=== PATIENT | female | born 1975 | race Caucasian/White ===

== ENCOUNTER 2018-02-21 09:20 | Emergency (ER) | payer BC, OTHER ==
[~2018-02-21] VITALS: Ht 162.6 cm; Wt 72.6 kg
[~2018-02-21 09:20] MED LIST: CYCL10TA9 PO; DEXL60CA5 PO; FOLI1TAB24 PO; HYDR-3454 PO; HYDR118S10 PO; HYDR200T46 PO; LEVO1TAB PO; LEVO750T6 PO; METH2.5T PO; METO10TA3 PO; METR500T PO; OXYC1TAB87 PO; PRD20T PO; REMI100D IV; REMICADE; REMICADE IV; SERT50TA9 PO
[2018-02-21] MEDS ORDERED: NS IV 1000 ML 1,000 ML IV ONE (09:59)
[2018-02-21] MEDS ORDERED: KETOROLAC 30 MG/ML VIAL IVP ONE (10:00)
[2018-02-21] MEDS ORDERED: ONDANSETRON 4 MG/2 ML (SDV) Z0FRAN IVP ONE (10:00)
--- NOTE | 2018-02-21 10:45 | Diagnostic Imaging Report ---
INDICATION: Influenza. EXAMINATION: PA and lateral views of the chest are obtained. COMPARISON: No previous study is available for comparison at this time. FINDINGS: Heart size and pulmonary vasculature are within normal limits, and the lungs are clear, bilaterally. IMPRESSION: Unremarkable chest. Dictated by: Dictated on workstation # [id number]
[2018-02-21 10:52] LABS: BASOPHILS % (AUTO) 1 % (0-10); EOSINOPHILS % (AUTO) 0 % (0-10); HEMATOCRIT 40 % (35-52); HEMOGLOBIN 13.7 G/DL (11.5-16.0); LYMPHOCYTES # (AUTO) 0.5 X 10^3 (1.0-4.0); LYMPHOCYTES % (AUTO) 23 % (12-44); MEAN CORPUSCULAR HEMOGLOBIN 31 PG (25-34); MEAN CORPUSCULAR HGB CONC 35 G/DL (32-36); MEAN CORPUSCULAR VOLUME 91 FL (80-99); MEAN PLATELET VOLUME 11.3 FL (7.4-10.4); MONOCYTES # (AUTO) 0.3 X 10^3 (0.0-1.0); MONOCYTES % (AUTO) 13 % (0-12); NEUTROPHILS # (AUTO) 1.3 X 10^3 (1.8-7.8); NEUTROPHILS % (AUTO) 64 % (42-75); PLATELET COUNT 118 10^3/uL (130-400); RED BLOOD COUNT 4.36 10^6/uL (4.35-5.85); RED CELL DISTRIBUTION WIDTH 13.2 % (10.0-14.5)
[2018-02-21 11:11] LABS: ALANINE AMINOTRANSFERASE 35 U/L (0-55); ALKALINE PHOSPHATASE 42 U/L (40-136); BILIRUBIN,TOTAL 0.2 MG/DL (0.1-1.0); BUN/CREATININE RATIO 8; CALCIUM 8.5 MG/DL (8.5-10.1); CARBON DIOXIDE 22 MMOL/L (21-32); CHLORIDE 104 MMOL/L (98-107); CREATININE SERUM 0.72 MG/DL (0.60-1.30); GFR ESTIMATED > 60; GLUCOSE 95 MG/DL (70-105); POTASSIUM 3.6 MMOL/L (3.6-5.0); SODIUM 135 MMOL/L (135-145); TOTAL PROTEIN 7.1 GM/DL (6.4-8.2)
[2018-02-21 11:24] LABS: BILIRUBIN,URINE NEGATIVE (NEGATIVE); CLARITY,URINE CLEAR; COLOR,URINE YELLOW; GLUCOSE, URINE (UA) NEGATIVE (NEGATIVE); KETONES,URINE 4+ (NEGATIVE); LEUKOCYTE ESTERASE ,URINE NEGATIVE (NEGATIVE); NITRITE,URINE NEGATIVE (NEGATIVE); PH,URINE 6 (5-9); PROTEIN,URINE 1+ (NEGATIVE); UROBILINOGEN,URINE NORMAL (NORMAL)
[2018-02-21 11:40] LABS: BACTERIA,URINE FEW /HPF; HYALINE CASTS, URINE RARE /LPF; RBC,URINE 0-2 /HPF
[2018-02-21 11:41] LABS: YEAST,URINE FEW /HPF
--- NOTE | 2018-02-21 12:31 | ED General ---
General Chief Complaint: Cough/Cold/Flu Symptoms Stated Complaint: INFLUENZA B Nursing Triage Note: TO ROOM REPORTS HAS FLU SYMPTOMS SINCE SUNDAY WAS SEE AT DR'S OFFICE TESTED POS FOR FLU B. WAS PUT ON TAMIFLU AND PHERGRAN CON'T TO NOT BE ANY BETTER. CONCERN THAT SHE IS ON REMACADE. CALLED 'S OFFICE TODAY AND WAS ONLY TOLD SHE WOULD SEE REPORT DEVELOPER AND DECIDED SHE WOULD COME TO ED INSTEAD. Nursing Sepsis Screen: Possible Sepsis Risk Source of Information: Patient Exam Limitations: No Limitations History of Present Illness Date Seen by Provider: Feb 21, 2018 Time Seen by Provider: 09:51 Initial Comments This 42-year-old woman presents to the emergency room with persistent symptoms of influenza. She was diagnosed with influenza B at her doctor's office on Sunday, February 18. She was started on Tamiflu. She is concerned because she is still having significant symptoms. She was prescribed antiemetics for nausea and vomiting. Patient is immunocompromised as she takes Remicade for rheumatoid arthritis. She states her chest feels tight and heavy and she has persistent fever. Fever is responsive to Tylenol. She has some ear aching. She has had decreased oral intake but has urinated today. She has myalgias. She has had no bowel movement for a few days. See nursing note above. Allergies and Home Medications Allergies Coded Allergies: Erythromycin Base (Verified Allergy, Intermediate, NAUSEA, 12/31/13) Home Medications Cyclobenzaprine HCl 10 Mg Tablet, 10 MG PO TID PRN for SPASMS Prescribed by: HAO RIVERA on 04/09/15 0209 Dexlansoprazole 60 Mg Lam., 60 MG PO DAILY, (Reported) Folic Acid 1 Mg Tablet, 1 MG PO HS, (Reported) Hydrocodone Bit/Acetaminophen 1 Each Tablet, 1-2 TAB PO EVERY 4-6 HRS PRN for PAIN Prescribed by: BRANDON GONZALES on 07/15/14 1328 Hydrocodone/Acetaminophen 1 Each Tablet, 1 TAB PO Q6H PRN for PAIN, (Reported) Hydroxychloroquine Sulfate 200 Mg Tab, 200 MG PO BID, (Reported) Levonorgestrel-Eth Estradiol 1 Each Tablet, 1 TAB PO HS, (Reported) Methotrexate Sodium 2.5 Mg Tablet, 7.5 MG PO SUNDAY NIGHT, (Reported) TAKES 3 (2.5MG) TABLETS WEEKLY ON Sunday AND TAKES 3 (2.5MG) TABLETS WEEKLY ON SundayS Methotrexate Sodium 2.5 Mg Tablet, 7.5 MG PO SUNDAY MORNING, (Reported) TAKES 3 (2.5MG) TABLETS WEEKLY ON Sunday AND TAKES 3 (2.5MG) TABLETS WEEKLY ON SundayS Metoclopramide Hcl 10 Mg Tablet, 1 EACH PO DAILY, (Reported) Oxycodone HCl/Acetaminophen 1 Each Tablet, 1 EACH PO Q4H PRN for PAIN Prescribed by: HAO RIVERA on 04/09/15208 Prednisone 20 Mg Tab, 20 MG PO BID Prescribed by: HAO RIVERA on 04/09/15208 Remifentanil In 0.9 % Nacl/Pf 100 Mcg/2 Ml Disp.syrin, 100 MCG IV [id number], ( Reported) Patient Home Medication List Home Medication List Reviewed: Yes Review of Systems Review of Systems Constitutional: see HPI EENTM: see HPI Respiratory: see HPI Cardiovascular: no symptoms reported Gastrointestinal: see HPI Genitourinary: see HPI : No Musculoskeletal: see HPI Skin: no symptoms reported Hematologic/Lymphatic: No Symptoms Reported Immunological/Allergic: no symptoms reported Past Vbcocxm-Xmzpwh-Ewqgzt Hx Past Med/Social Hx: Reviewed and Corrections made Patient Social History Alcohol Use: Denies Use Recreational Drug Use: No Smoking Status: Never a Smoker Recent Foreign Travel: No Contact w/Someone Who Travel: No Recent Infectious Disease Expo: No Immunizations Up To Date Date of Pneumonia Vaccine: Jan 26, 2014 Date of Influenza Vaccine: Jan 26, 2014 Seasonal Allergies Seasonal Allergies: No Past Medical History Surgeries: Yes (BREAST REDUCTION) Breast, Gallbladder, Orthopedic (Back) Respiratory: No Cardiac: No Neurological: No Reproductive Disorders: No Sexually Transmitted Disease: No HIV/AIDS: No UTI-Chronic Gastrointestinal: Yes Chronic Constipation, Chronic Diarrhea Musculoskeletal: Yes Arthritis, Rheumatoid Arthritis Endocrine: No Cancer: No Psychosocial: Yes Depression Integumentary: No Blood Disorders: No Family Medical History Reviewed Nursing Family Hx Arthritis 19 FATHER Cataracts 19 FATHER Deafness or hearing loss 19 MOTHER Headache disorder 19 FATHER 19 MOTHER G8 BROTHER Hypercholesterolemia 19 FATHER Parkinson's disease 19 FATHER Psychosocial problem 19 FATHER No Family History of: AIDS Abdominal aortic aneurysm Ron's disease Alcoholism Alzheimer's disease Aphasia Asthma Cancer of mouth Cardiovascular disease Colon cancer Completed stroke Congenital disease Congenital heart disease Coronary thrombosis Cystic fibrosis Dementia Diabetes mellitus Drug abuse Dysphasia Fibrocystic disease of breast Gastroenteritis Glaucoma Hypertension Infertility Kidney disease Myocardial infarction Neoplasm Osteoporosis Prostate cancer Respiratory disorder Seizure disorder Severe allergy Thyroid disease Tuberculosis Visual disorder Physical Exam Vital Signs Vital Signs - First Documented 02/21/18 09:33 Temp 100.6 Pulse 124 Resp 18 B/P (MAP) 139/97 (111) Pulse Ox 100 O2 Delivery Room Air Capillary Refill : Less Than 3 Seconds Height, Weight, BMI Height: 5'4" Weight: 160lbs. 2.0oz. [id number]; 27.46 BMI Method:Stated General Appearance: No Apparent Distress, WD/WN HEENT: PERRL/EOMI, TMs Normal, Normal ENT Inspection, Pharynx Normal Neck: Normal Inspection Respiratory: Lungs Clear, Normal Breath Sounds, No Accessory Muscle Use, No Respiratory Distress Cardiovascular: No Edema, No Murmur, Tachycardia Gastrointestinal: Normal Bowel Sounds, Non Tender, Soft Extremity: Normal Inspection, No Pedal Edema Neurologic/Psychiatric: Alert, Oriented x3, No Motor/Sensory Deficits, Normal Mood/Affect, delinquent account clerk II-XII Norm as Tested Skin: Normal Color, Warm/Dry Progress/Results/Core Measures Suspected Sepsis Recent Fever Within 48 Hours: Yes Infection Criteria Present: Suspected New Infection New/Unexplained Altered Menta: No Sepsis Screen: Possible Sepsis Risk SIRS Temperature:100.6 Pulse: 124 Respiratory Rate: 18 Blood Pressure 139 /97 Mean: 111 Results/Orders Lab Results My Orders Medications Given in ED Vital Signs/I&O Capillary Refill : Less Than 3 Seconds Blood Pressure Mean: 111 Progress Note : Progress Note Workup was pursued as patient is immunocompromised on Remicade. UA and chest x- ray were obtained to ensure no secondary infection was present. These were unremarkable for evidence of infection. Patient was hydrated with a liter of IV fluid. Zofran was administered for nausea. Diagnostic Imaging Diagonstic Imaging: Xray Plain Films/CT/US/NM/MRI: chest Comments Chest x-ray reviewed by me and report reviewed. See report below: NAME: CORINA MAGAÑA [facility] REC#: [id number] PT STATUS: DEP ER : 1975 PHYSICIAN: HAO BETTS MD ADMIT DATE: 02/21/18/ER Signed Date of Exam: 02/21/18 CHEST PA/LAT (2 VIEW) INDICATION: Influenza. EXAMINATION: PA and lateral views of the chest are obtained. COMPARISON: No previous study is available for comparison at this time. FINDINGS: Heart size and pulmonary vasculature are within normal limits, and the lungs are clear, bilaterally. IMPRESSION: Unremarkable chest. Dictated by: Dictated on workstation # [id number] Dict: 02/21/18 1042 Trans: 02/21/18 1429 Interpreted by: RAMYA URENA MD Electronically signed by: RAMYA URENA MD 02/21/18 1429 Departure Impression Primary Impression: Influenza B Additional Impressions: Leukopenia Qualified Codes: D72.819 - Decreased white blood cell count, unspecified Nausea and vomiting Qualified Codes: R11.2 - Nausea with vomiting, unspecified Hypovolemia Disposition: HOME, SELF-CARE Condition: Improved Departure-Patient Inst. Decision time for Depature: 12:30 Referrals: BILLY HOFFMAN DO (PCP) Primary Care Physician Patient Instructions: Flu, Adult (DC) Add. Discharge Instructions: Drink plan clear liquids. Use your Zofran as prescribed for nausea and vomiting. Complete Tamiflu as prescribed. You may continue to take Tylenol and /or ibuprofen for pain and fever. Return to care if symptoms are worsening. All discharge instructions reviewed with patient and/or family. Voiced understanding. Copy Copies To 1: BILLY HOFFMAN JOSHUA T MD Feb 21, 2018 12:31
[2018-02-21 12:39] VITALS: BP 115/87
== END 2018-02-21 12:42 | disposition home or self-care (01) ==
LOC: EDUNIT# 09:20 → ER 09:21
DX: J10.1 Influenza due to other identified influenza virus with other respiratory manifestations (principal); R11.2 Nausea with vomiting, unspecified; D72.819 Decreased white blood cell count, unspecified; E86.1 Hypovolemia; F32.9 Major depressive disorder, single episode, unspecified; M06.9 Rheumatoid arthritis, unspecified; Z82.49 Family history of ischemic heart disease and other diseases of the circulatory system; Z88.0 Allergy status to penicillin; Z79.52 Long term (current) use of systemic steroids; Z87.440 Personal history of urinary (tract) infections; Z87.19 Personal history of other diseases of the digestive system
CPT/HCPCS: 36415; 71046; 80053; 81000; 83735; 85025

== ENCOUNTER → 2018-08-12 | Outpatient (CLI) | payer BC ==
[2018-08-12 17:46] LABS: BASOPHILS % (AUTO) 0 % (0-10); EOSINOPHILS % (AUTO) 0 % (0-10); HEMATOCRIT 37 % (35-52); HEMOGLOBIN 12.4 G/DL (11.5-16.0); LYMPHOCYTES # (AUTO) 0.4 X 10^3 (1.0-4.0); LYMPHOCYTES % (AUTO) 4 % (12-44); MEAN CORPUSCULAR HEMOGLOBIN 31 PG (25-34); MEAN CORPUSCULAR HGB CONC 34 G/DL (32-36); MEAN CORPUSCULAR VOLUME 91 FL (80-99); MONOCYTES # (AUTO) 0.3 X 10^3 (0.0-1.0); MONOCYTES % (AUTO) 3 % (0-12); NEUTROPHILS # (AUTO) 9.9 X 10^3 (1.8-7.8); NEUTROPHILS % (AUTO) 93 % (42-75); PLATELET COUNT 160 10^3/uL (130-400); RED CELL DISTRIBUTION WIDTH 13.6 % (10.0-14.5); WHITE BLOOD COUNT 10.6 10^3/uL (4.3-11.0)
[2018-08-12 18:05] LABS: BAND NEUTROPHILS 3 %; BASOPHILS % (MANUAL) 0 %; EOSINOPHILS % (MANUAL) 0 %; LYMPHOCYTES % (MANUAL) 8 %; MONOCYTES % (MANUAL) 1 %; NEUTROPHILS % (MANUAL) 88 %
[2018-08-12 18:06] LABS: RBC MORPH NORMAL
[2018-08-12 18:10] LABS: ALANINE AMINOTRANSFERASE 20 U/L (0-55); ALKALINE PHOSPHATASE 58 U/L (40-136); BILIRUBIN,TOTAL 0.5 MG/DL (0.1-1.0); BUN/CREATININE RATIO 14; CARBON DIOXIDE 19 MMOL/L (21-32); CHLORIDE 107 MMOL/L (98-107); CREATININE SERUM 0.69 MG/DL (0.60-1.30); GFR ESTIMATED > 60; GLUCOSE 94 MG/DL (70-105); POTASSIUM 3.7 MMOL/L (3.6-5.0); SODIUM 138 MMOL/L (135-145); TOTAL PROTEIN 7.6 GM/DL (6.4-8.2)
[2018-08-12 18:11] LABS: ERYTHROCYTE SEDIMENTATION RATE 25 MM/HR (0-20)
== END ==
LOC: LAB 17:25
PROVIDERS: ATTEND Nurse Practitioner Family
DX: R10.84 Generalized abdominal pain (principal); R11.10 Vomiting, unspecified
CPT/HCPCS: 36415; 80053; 85007; 85027; 85652

== ENCOUNTER → 2020-12-31 | Outpatient (CLI) | payer BC | LOC: CARD 08:30 | PROVIDERS: ATTEND Family Medicine | DX: R00.0 Tachycardia, unspecified (principal); R00.2 Palpitations | CPT/HCPCS: 93225; 93226 ==

== ENCOUNTER → 2021-02-07 | Outpatient (CLI) | payer BC | LOC: CARD 15:00 | PROVIDERS: ATTEND Family Medicine | DX: R01.1 Cardiac murmur, unspecified (principal); R00.0 Tachycardia, unspecified; I51.7 Cardiomegaly | CPT/HCPCS: 93306 ==

== ENCOUNTER → 2021-11-11 | Outpatient (CLI) | payer BC ==
[~2021-11-11] MED LIST changes: +CILGAVIMAB IM ONE; +CYCL10TA25 PO; -CYCL10TA9 PO; +TIXAGEVIMAB IM ONE
[2021-11-11 11:33] VITALS: BP 125/81
== END ==
LOC: SDC 10:45
PROVIDERS: ATTEND Family Medicine
DX: M06.9 Rheumatoid arthritis, unspecified (principal)
CPT/HCPCS: 96372

== ENCOUNTER 2022-05-01 09:08 | Outpatient (CLI) | payer BC ==
[~2022-05-01] VITALS: Ht 162.6 cm; Wt 68.2 kg
[~2022-05-01 09:08] MED LIST changes: -CILGAVIMAB IM ONE; -TIXAGEVIMAB IM ONE
[2022-05-01] MEDS ORDERED: CILGAVIMAB IM NR ×2 (09:30→10:00)
[2022-05-01] MEDS ORDERED: TIXAGEVIMAB IM NR ×2 (09:30→10:00)
[2022-05-01 11:10] VITALS: BP 120/89
[2022-05-01] MEDS ORDERED: LEVO1TAB79 PO (14:52)
[2022-05-01] MEDS ORDERED: SULI200T4 PO (14:52)
[2022-05-01] MEDS ORDERED: VALA500T4 PO (14:52)
[2022-05-01] MEDS ORDERED: SIMPONI (14:52)
[2022-05-01] MEDS ORDERED: NEBI10TA11 PO (14:52)
[2022-05-01] MEDS ORDERED: CETI10CA PO (14:56)
== END 2022-05-01 11:00 | disposition home or self-care (01) ==
LOC: SDC 09:08
PROVIDERS: ATTEND Family Medicine
DX: M06.9 Rheumatoid arthritis, unspecified (principal); D84.9 Immunodeficiency, unspecified
CPT/HCPCS: 96372